=== PATIENT | female | born 1975 | race Caucasian/White ===

== ENCOUNTER 2025-03-18 22:17 | Emergency (ER) | payer BC, SELFPAY ==
[2025-03-18 22:22] VITALS: BP 105/58; PULSE 88; TEMP 36.6; O2SAT 97; BMI 19.3
--- OUTSIDE RECORDS SUMMARY | 2025-03-18 22:27 | XMS_ITS | Clinical Summary ---
Author Organization [facility] Address [id number] [address] [place] [address] Care Team Providers Care [employer] Principal Name Role Phone Yumiko Blount Primary Care Provider Family History Medical History Relation Name Comments Breast cancer Neg Hx Social History Tobacco Use Types Packs/Day Years Used Date Smoking Tobacco: Never Assessed Childcare Answer Date Recorded Childcare Unknown 03/24/2019 Employment Answer Date Recorded Employment Unknown 03/24/2019 Purpose - Life Answer Date Recorded Purpose and direction in life Unknown Comments No Sex and Gender Information Value Date Recorded Sex Assigned at Not on file Legal Sex Female 11:37 AM EDT Gender Identity Not on file Sexual Orientation Not on file Last Filed Vital Signs Vital Sign Reading Time Taken Comments Blood Pressure - - Pulse - - Temperature - - Respiratory Rate - - Oxygen Saturation - - Inhaled Oxygen Concentration - - Weight 54.9 kg (121 lb) 01/30/2021 11:01 AM EDT Height 165.1 cm (5' 5 ) 01/30/2021 11:01 AM EDT Body Mass Index 20.14 01/30/2021 11:01 AM EDT Plan of Treatment Health Maintenance Due Date Last Done Comments Depression Screening 1986 Tobacco Screening 1986 Adult BMI Screening 01/20/1992 DTaP,Tdap and Td Vaccines (1 - Tdap) 1993 Pap Smear 1995 Zoster (Shingles) Vaccine (1 of 2) 01/20/2024 Influenza Vaccine 06/13/2025 Medical Devices Not on file Care Teams [employer] Principal Relationship Specialty Start Date End Date Yumiko Blount APRN-CNP PCP - General Family Medicine 12/22/19
--- NOTE | 2025-03-18 22:43 | ED.GENADUL1 ---
HPI HPI - General Adult General Chief complaint: Skin/Abscess/Foreign Body Stated complaint: JUAN C SIMS Time Seen by Provider: 03/18/25 22:38 Source: patient Mode of arrival: walk-in Limitations: no limitations History of Present Illness HPI narrative: This 50-year-old female states she was pulling weeds 2 days ago in the early hours of yesterday woke up with itching of the right arm, lower half of the face and neck where she has noted a rash. She has used Benadryl cream. She denies shortness of breath. She is not diabetic. Related Data Previous Rx's ?Medication ?Instructions ?Recorded cetirizine 10 mg tablet (Zyrtec) 10 mg PO HS #10 tabs 03/18/25 famotidine 20 mg tablet (Pepcid) 20 mg PO BID 10 days #20 tabs 03/18/25 prednisone 20 mg tablet 40 mg (2 x 20 mg) PO DAILY 5 days 03/18/25 #10 tabs triamcinolone acetonide 0.5 % 1 applic topical TID #30 grams 03/18/25 topical cream Allergies Allergy/AdvReac Type Severity Reaction Status Date / Time Penicillins AdvReac vomits Verified 03/18/25 22:27 Review of Systems ROS Status of ROS 10 or more systems reviewed and unremarkable except as noted in history and below [facility] Social History Little interest or pleasure in doing things: not at all Feeling down, depressed, or hopeless: not at all Exam Narrative Exam Narrative: Patient's vital signs are stable. She has an irregularly shaped erythematous rash varying in size some coalescing lesions noted involving most of the right arm, the neck anteriorly in the lower part of the face around the chin. HEENT exam is otherwise normal to inspection. Neck is supple. Lung sounds are clear to auscultation bilaterally with good air entry. Heart has regular rate and rhythm. Abdomen soft benign. Constitutional Vital Signs, click to edit/add: Last Vital Signs Temp 98 F 03/18/25 22:22 Pulse 88 03/18/25 22:22 Resp 16 03/18/25 22:22 BP 105/58 03/18/25 22:22 Pulse Ox 97 03/18/25 22:22 O2 Del Method Nasal Cannula 03/18/25 22:22 Course Vital Signs Vital signs: Vital Signs Temperature 98 F 03/18/25 22:22 Pulse Rate 88 03/18/25 22:22 Respiratory Rate 16 03/18/25 22:22 Blood Pressure 105/58 03/18/25 22:22 Pulse Oximetry 97 03/18/25 22:22 Oxygen Delivery Method Nasal Cannula 03/18/25 22:22 Temperature 98 F 03/18/25 22:22 Pulse Rate 88 03/18/25 22:22 Respiratory Rate 16 03/18/25 22:22 Blood Pressure 105/58 03/18/25 22:22 Pulse Oximetry 97 03/18/25 22:22 Oxygen Delivery Method Nasal Cannula 03/18/25 22:22 Medical Decision Making MDM Narrative Medical decision making narrative: Patient presents with plan based contact dermatitis after pulling weeds. She is treated with Kenalog 40 mg IM and upon discharge is placed on Pepcid, Zyrtec, and prednisone. Outpatient follow-up is advised and she is to return anytime for worsening symptoms. Discharge Plan Discharge Chief Complaint: Skin/Abscess/Foreign Body Clinical Impression: Contact dermatitis Patient Disposition: Home, Self-Care Time of Disposition Decision: 22:47 Condition: Good Mode of Transportation: Private Vehicle Prescriptions / Home Meds: New triamcinolone acetonide 0.5 % cream 1 applic topical TID Qty: 30 0RF cetirizine [Zyrtec] 10 mg tablet 10 mg PO HS Qty: 10 0RF famotidine [Pepcid] 20 mg tablet 20 mg PO BID 10 Days Qty: 20 0RF prednisone 20 mg tablet 40 mg PO DAILY 5 Days Qty: 10 0RF Print Language: Omani Instructions: Contact Dermatitis (ED) Additional Instructions: Medications as prescribed. Do not apply triamcinolone to face. Return for worsening symptoms. Referrals: FABIOLA GASTON DO [Primary Care Provider, Family Practice] - 1 week Discharge Date/Time: 03/18/25 23:06
[2025-03-18] MEDS: TRIAMCINOLONE ACETONIDE 40 MG/ML VIAL IM (23:00)
== END 2025-03-18 23:06 | disposition home or self-care (01) ==
PROVIDERS: Emergency Provider Emergency Medicine; PCP Internal Medicine
DX: L25.5 Unspecified contact dermatitis due to plants, except food (principal)
CPT/HCPCS: 96372; 99284; J3301